=== PATIENT | male | born 1940 | race Caucasian/White ===

== ENCOUNTER 2021-01-12 21:39 | Inpatient (IN) | payer OTHER ==
[~2021-01-12] VITALS: Ht 175.3 cm; Wt 58.1 kg
[2021-01-14] MEDS ORDERED: ALPRAZOLAM0.5 MG (08:17)
[2021-01-14] MEDS ORDERED: FENOFIBRATE160 MG (08:17)
[2021-01-14] MEDS ORDERED: ATORVASTATIN CA40 MG (08:17)
[2021-01-14] MEDS ORDERED: LEVOTHYROXINE100 MCG (08:17)
[2021-01-14] MEDS ORDERED: STIOLTO RESPIMAT4 GM (08:18)
[2021-01-14] MEDS ORDERED: QUETIAPINE FUM100 MG (08:18)
[2021-01-14] MEDS ORDERED: TRAZODONE HCL100 MG (08:18)
[2021-01-14] MEDS ORDERED: BUMETANIDE1 MG (08:18)
[2021-01-14] MEDS ORDERED: LISINOPRIL5 MG (08:18)
[2021-01-14] MEDS ORDERED: OMEGA-3 ACID ETH1 GM (08:18)
[2021-01-14] MEDS ORDERED: PROAIR HFA8.5 GM (08:18)
== END 2021-01-22 18:46 | disposition home or self-care (01) | DRG 64 ==
LOC: ER 21:39 → MEDJ 01-13 12:00
PROVIDERS: ADMIT Internal Medicine; ATTEND Internal Medicine
PROC: BW28ZZZ Computerized Tomography (CT Scan) of Head (ICD-10-PCS; principal; 2021-01-13)
PROC: 4A033R1 Measurement of Arterial Saturation, Peripheral, Percutaneous Approach (ICD-10-PCS; 2021-01-13)
PROC: B030ZZZ Magnetic Resonance Imaging (MRI) of Brain (ICD-10-PCS; 2021-01-13)
PROC: BW25ZZZ Computerized Tomography (CT Scan) of Chest, Abdomen and Pelvis (ICD-10-PCS; 2021-01-14)
PROC: B345ZZZ Ultrasonography of Bilateral Common Carotid Arteries (ICD-10-PCS; 2021-01-15)
PROC: B348ZZZ Ultrasonography of Bilateral Internal Carotid Arteries (ICD-10-PCS; 2021-01-15)
PROC: B24BZZZ Ultrasonography of Heart with Aorta (ICD-10-PCS; 2021-01-15)
PROC: 0W993ZZ Drainage of Right Pleural Cavity, Percutaneous Approach (ICD-10-PCS; 2021-01-18)
DX: I63.512 Cerebral infarction due to unspecified occlusion or stenosis of left middle cerebral artery (principal); J18.9 Pneumonia, unspecified organism; J90 Pleural effusion, not elsewhere classified; N17.8 Other acute kidney failure; J43.2 Centrilobular emphysema; R47.01 Aphasia; R41.82 Altered mental status, unspecified; I10 Essential (primary) hypertension; Z20.822 Contact with and (suspected) exposure to COVID-19
CPT/HCPCS: 70551

== ENCOUNTER 2021-03-10 13:12 | Inpatient (IN) | payer OTHER ==
[~2021-03-10] VITALS: Ht 177.8 cm; Wt 56.7 kg
[~2021-03-10 13:12] MED LIST: ALPRAZOLAM0.5 MG; ATORVASTATIN CA40 MG; BUMETANIDE1 MG; FENOFIBRATE160 MG; LEVOTHYROXINE100 MCG; LISINOPRIL5 MG; OMEGA-3 ACID ETH1 GM; PROAIR HFA8.5 GM; QUETIAPINE FUM100 MG; STIOLTO RESPIMAT4 GM; TRAZODONE HCL100 MG
[2021-03-10] MEDS ORDERED: LEVOTHYROXINE25 MCG PO (14:07)
--- NOTE | 2021-03-10 14:15 | NUR ---
SE RECIBE PACIENTE ALERTA Y ORIENTADO X3, REFIERE TENER DIFICULTAD RESPIRATORIA DESDE HACE MICHAEL SEMANA. REFIERE PRIETO MEDICO DE CABECERA REIMON QUE PASE POR [facility] DE EMERGENCIAS. SE LE REALIZA EKG. SE LE PRESENTRA AL . SE UBICA PACIENTE EN SECCION-K.
--- NOTE | 2021-03-10 16:42 | NUR ---
SE ORIENTA AL PACIENTE SOBRE EL TX. SE EXTRAEN MUESTRAS DE MARCUS BAJO MEDIDAS ASEPTICAS SE ROTULAN Y ENVIAN AL LABORATORIO. SE CANALIZA Y ADMINISTRAN MEDICAMENTOS RUTH ORDEN MEDICA. SE JORDYN MUESTRAS PARA UA Y [facility]
--- NOTE | 2021-03-10 17:30 | NUR ---
se notifican terapias respiratorias a chato. baptiste
--- NOTE | 2021-03-11 00:17 | NUR ---
SE RECIBE PTE ALERTA Y ORIENTADO EN KRISHAN DARRELL ESFERAS, UBICADO EN CAMA NIVEL MAS BAJO, DE IDENTIFICACION Y BARANDAS ELEVADAS POR PRECAUCION. CONECTADO A MONITOR CARDIACO Y OXIMETRIA DE PULSO. SE OBSERVA CON CANULA NASAL A 2L/MIN, LA CUAL TOLERA MANTENIENDO BUEN PATRON RESPIRATORIO Y SATURANDO 100% RUTH OXIMETRO DE PULSO. PIEL TIBIA AL TACTO. IV'S PATENTES Y LIBRES DE EDEMA O ERITEMA CON ANGIOS #18 EN ANTEBRAZO LT Y #20 EN MANO LT, RECIBIENDO 0.45% NACL @100ML/HR. B/P MANULA 80/52, SE NOTIFICA A DR KNOX QUIEN ORDENA EL [place]. SE ADMINISTRA EL MISMO Y SE MANTIENE BAJO OBSERVACION. PENDIENTE A CONSULTA CON MEDICINA INTERNA (DR CHECO DERAS).
--- NOTE | 2021-03-11 07:00 | NUR ---
SE RECIBE PTE DEL TURNO ANTERIOR EN UNIDAD DE CHEST PAIN CONECTADO A MONITOR CARDIACO Y OXIMETRIA DE PULSO, CON OXIHOOD POR INFLUENZA B. PACIENTE ALERTA Y ORIENTADO X3, AL MOMENTO DORMIDO, EN DEAN NIVEL MAS BAJO CON BARANDAS ELEVADAS POR PRECAUCION. PACIENTE PRESENTA BUEN PATRON RESPIRATORIO ASISTIDO A CANULA NASAL A 2 LITROS SATURANDO AL MOMENTO 100% CON OXIMETRIA DE PULSO. PIEL TIBIA AL TACTO CON AREA DE VENOPUNCIONES PATENTES EN ANTEBRAZO L+ CON ANGIO #18 Y EN MANO L+ CON ANGIO #20 RECIBIENDO 0.45% NSS AT 100 ML/HR Y LEVOPHED 4 MG/100 ML AT 6 ML/HR. PACIENTE CON TRATAMIENTO DE XOPENEX Q 4 HORAS[address] PENDIENTE CONSULTA CON DR. CHECO DERAS POR INFLUENZA B Y EFUSION PLEURAL. SE MANTIENE A PACIENTE BAJO OBSERVACION POR CAMBIOS EN CONDICION.
[2021-03-14] MEDS ORDERED: CLOPIDOGREL BIS75 MG (08:14)
[2021-03-14] MEDS ORDERED: ALPRAZOLAM0.5 MG (08:15)
[2021-03-14] MEDS ORDERED: FAMOTIDINE20 MG (08:15)
[2021-03-14] MEDS ORDERED: FUROSEMIDE20 MG (08:15)
[2021-03-14] MEDS ORDERED: STIOLTO RESPIMAT4 GM (08:15)
[2021-03-18] MEDS ORDERED: ALPRAZOLAM0.5 MG PO (16:10)
[2021-03-18] MEDS ORDERED: BENZONATATE200 M1 PO (16:10)
[2021-03-18] MEDS ORDERED: LASIX20 MG PO (16:10)
[2021-03-18] MEDS ORDERED: LEVOTHYROXINE125 MCG PO (16:10)
[2021-03-18] MEDS ORDERED: LIPITOR40 MG PO (16:10)
[2021-03-18] MEDS ORDERED: MEDROLPACK PO (16:10)
[2021-03-18] MEDS ORDERED: CLOPIDOGREL BIS75 MG PO (16:10)
== END 2021-03-18 18:11 | disposition home or self-care (01) | DRG 193 ==
LOC: ER 13:12 → SEC-K 03-11 09:56 → MEDJ 03-11 15:09
PROVIDERS: ADMIT Internal Medicine; ATTEND Internal Medicine
PROC: B24BZZZ Ultrasonography of Heart with Aorta (ICD-10-PCS; principal; 2021-03-12)
DX: J10.1 Influenza due to other identified influenza virus with other respiratory manifestations (principal); I50.21 Acute systolic (congestive) heart failure; I21.4 Non-ST elevation (NSTEMI) myocardial infarction; J90 Pleural effusion, not elsewhere classified; J43.8 Other emphysema; R41.82 Altered mental status, unspecified; Z20.822 Contact with and (suspected) exposure to COVID-19; I11.0 Hypertensive heart disease with heart failure; R06.02 Shortness of breath